=== PATIENT | male | born 2000 | race Two or more races ===

== ENCOUNTER 2021-08-23 14:35 | Emergency (ER) | payer OTHER ==
[2021-08-23] MEDS ORDERED: Tetracaine 0.5% PF 4 ML BOT ONE (15:06)
[2021-08-23] MEDS ORDERED: Fluorescein Opthalmic Strip ONE (15:06)
== END 2021-08-23 15:25 | disposition home or self-care (01) ==
LOC: CSHERS 14:35
DX: T15.02XA Foreign body in cornea, left eye, initial encounter (principal)
CPT/HCPCS: 65222